=== PATIENT | female | born 1975 | race Hispanic/Latino ===

== ENCOUNTER 2022-05-09 23:30 | Emergency (ER) | payer BC ==
[~2022-05-09] VITALS: Ht 154.9 cm; Wt 87.1 kg
[2022-05-10] MEDS ORDERED: CLEOCIN HCL300 MG PO (00:24)
[2022-05-10] MEDS ORDERED: CEPHALEXIN500 MG PO (00:25)
== END 2022-05-10 01:11 | disposition home or self-care (01) ==
LOC: FSED 23:35
DX: K61.0 Anal abscess (principal); I10 Essential (primary) hypertension; E78.5 Hyperlipidemia, unspecified; F41.9 Anxiety disorder, unspecified
CPT/HCPCS: 99282